=== PATIENT | female | born 1980 | race Caucasian/White ===

== ENCOUNTER → 2016-06-06 17:18 | Outpatient (CLI) | payer BC ==
[2010-01-04 06:35] VITALS: BMI 26.1
== END | disposition home or self-care (01) ==
LOC: D.MAMMO 13:30
DX: N64.4 Mastodynia (principal)

== ENCOUNTER 2016-07-12 08:54 | Outpatient (CLI) | payer BC ==
[2010-01-04 06:35] VITALS: BMI 26.1
== END 2016-07-12 11:20 ==
LOC: D.MAMMO 08:54
DX: R92.8 Other abnormal and inconclusive findings on diagnostic imaging of breast (principal)

== ENCOUNTER 2018-06-21 08:55 | Emergency (ER) | payer OTHER ==
[~2018-06-21] VITALS: Ht 162.6 cm; Wt 83.2 kg
[2018-06-21 08:57] VITALS: Ht 162.6 cm; Wt 83.2 kg
[2018-06-21 09:23] LABS: BASOPHILS 0.1 % (0-2); EOSINOPHILS 0.9 % (0-7); HEMOGLOBIN 13.9 g/dL (12-16); IMMATURE GRANULOCYTES 0.2 % (0-5); LYMPHOCYTES 24.7 % (15-50); MCH 28.7 pg (26.0-34.0); MCHC 33.9 g/dL (31.0-37.0); MCV 84.7 fL (80.0-100.0); MONOCYTES 10.7 % (2-11); NEUTROPHILS 63.4 % (40-80); PLATELET COUNT 274 10x3/uL (130-400); RBC 4.84 10x6/uL (4.00-5.40); RDW 12.3 % (11.5-14.5); WBC 8.1 10x3/uL (4.8-10.8)
[2018-06-21 09:40] LABS: APPEARANCE CLEAR (CLEAR); BILIRUBIN NEGATIVE (NEGATIVE); COLOR YELLOW (YELLOW); GLUCOSE NEGATIVE (NEGATIVE); KETONE NEGATIVE (NEGATIVE); NITRITE NEGATIVE (NEGATIVE); PROTEIN NEGATIVE (NEGATIVE); UROBILINOGEN NORMAL (NORMAL)
[2018-06-21 09:46] LABS: ALBUMIN 4.1 g/dL (3.4-5.0); ALKALINE PHOSPHATASE 63 U/L (46-116); ALT (SGPT) 28 U/L (10-68); AMYLASE - SERUM 47 U/L (25-115); BILIRUBIN - TOTAL 0.91 mg/dL (0.2-1.3); CALC OSMOLALITY 275 mosm/kg (275-300); CALCIUM 9.2 mg/dL (8.5-10.1); CARBON DIOXIDE 27.7 mmol/L (21.0-32.0); CHLORIDE - SERUM 103 mmol/L (98-107); CREATININE - SERUM 0.9 mg/dL (0.6-1.3); GLUCOSE 95 mg/dL (74-106); LIPASE 250 U/L (73-393); POTASSIUM - SERUM 4.1 mmol/L (3.5-5.1); PROTEIN - SERUM 7.4 g/dL (6.4-8.2); SODIUM 138 mmol/L (136-145); TROPONIN-I < 0.017 ng/mL (0.000-0.060); UREA NITROGEN 13 mg/dL (7-18); eGFR NON AFRICAN AMERICAN 73 mL/min (90-120)
[2018-06-21] MEDS ORDERED: KEFLEX500 MG PO (12:01)
[2018-06-21] MEDS ORDERED: IBUPROFEN800 MG PO (12:01)
[2018-06-21] MEDS ORDERED: CYCLOBENZAPRINE10 MG PO (12:01)
[2018-06-21] MEDS ORDERED: MACROBID100 MG PO (12:01)
[2018-06-21 12:26] VITALS: BP 137/79
== END 2018-06-21 12:27 | disposition home or self-care (01) ==
LOC: D.ER 08:55
PROVIDERS: Family Medicine
DX: R10.9 Unspecified abdominal pain (principal); N30.90 Cystitis, unspecified without hematuria